=== PATIENT | female | born 1995 | race Caucasian/White ===

== ENCOUNTER 2019-09-06 10:30 | Emergency (ER) | payer SELFPAY ==
--- NOTE | 2019-09-06 11:22 | ER Document Report ---
ED Medical Screen (RME) - General Chief Complaint: Palpitations Stated Complaint: PALPITATIONS Time Seen by Provider: 09/06/19 11:19 Mode of Arrival: Ambulatory Information source: Patient Notes: 24-year-old female presented to ED for complaint of palpitations. She denies any chest pains at this time. She states her heart was very irregular at the time that the incident started but she does not have any right now. She states she had a real bad in October 2016 before she had her thyroid removed. She states is been going on for 2 to 3 weeks this time. She states is mostly at night. But this morning at 5:00 it started but is better at this time. She is alert oriented respirations regular nonlabored speaking in full sentences. She states when she is having the palpitations irregular heartbeat she does get very short of breath. I have greeted and performed a rapid initial assessment of this patient. A comprehensive ED assessment and evaluation of the patient, analysis of test results and completion of medical decision making process will be conducted by an additional ED providers. - Related Data Allergies/Adverse Reactions: No Known Allergies Allergy (Verified 09/06/19 11:19) Past Medical History Past Surgical History: Reports: Hx Thyroid Surgery Physical Exam - Vital signs Vitals: Temp Pulse Resp BP Pulse Ox 98.5 F 80 18 113/73 98 09/06/19 10:58 09/06/19 10:58 09/06/19 10:58 09/06/19 10:58 09/06/19 10:58 Course - Vital Signs Vital signs: Temp Pulse Resp BP Pulse Ox 98.5 F 80 18 113/73 98 09/06/19 10:58 09/06/19 10:58 09/06/19 10:58 09/06/19 10:58 09/06/19 10:58
--- NOTE | 2019-09-06 12:07 | RADIOLOGY REPORT (SQ) ---
EXAM DESCRIPTION: CHEST 2 VIEWS COMPLETED DATE/TIME: 09/06/2019 11:59 am REASON FOR STUDY: Palpitation COMPARISON: None. EXAM PARAMETERS: NUMBER OF VIEWS: two views TECHNIQUE: Digital Frontal and Lateral radiographic views of the chest acquired. RADIATION DOSE: NA LIMITATIONS: none FINDINGS: LUNGS AND PLEURA: No opacities, masses or pneumothorax. No pleural effusion. MEDIASTINUM AND HILAR STRUCTURES: No masses or contour abnormalities. HEART AND VASCULAR STRUCTURES: Heart normal size. No evidence for failure. BONES: No acute findings. HARDWARE: None in the chest. OTHER: No other significant finding. IMPRESSION: NO ACUTE RADIOGRAPHIC FINDING IN THE CHEST. TECHNICAL DOCUMENTATION: JOB ID: [id number] [employer]- All Rights Reserved Reading location - IP/workstation name: [email or web address]
[2019-09-06 12:38] LABS: ABSOLUTE BASOPHILS # (AUTO) 0.1 10^3/uL (0.0-0.2); ABSOLUTE EOSINOPHILS # (AUTO) 0.4 10^3/uL (0.0-0.6); ABSOLUTE LYMPHOCYTES (AUTO) 3.6 10^3/uL (0.5-4.7); ABSOLUTE MONOCYTES (AUTO) 0.7 10^3/uL (0.1-1.4); ABSOLUTE NEUT (AUTO) 6.6 10^3/uL (1.7-8.2); BASOPHILS % (AUTO) 0.8 % (0-2); EOSINOPHILS % (AUTO) 3.3 % (0-6); HEMATOCRIT 39.4 % (36.0-47.0); HEMOGLOBIN 13.7 g/dL (12.0-15.5); LYMPHOCYTES % (AUTO) 31.9 % (13-45); MEAN CORPUSCULAR HEMOGLOBIN 29.9 pg (27.0-33.4); MEAN CORPUSCULAR HGB CONC 34.9 g/dL (32.0-36.0); MEAN CORPUSCULAR VOLUME 86 fl (80-97); MONOCYTES % (AUTO) 5.8 % (3-13); PLATELET COUNT 312 10^3/uL (150-450); RED CELL DISTRIBUTION WIDTH 13.4 % (11.5-14.0); SEGMENTED NEUTROPHILS % (AUTO) 58.2 % (42-78); TOTAL CELLS COUNTED % (AUTO) 100 %; WHITE BLOOD COUNT 11.3 10^3/uL (4.0-10.5)
[2019-09-06 12:45] LABS: APPEARANCE,URINE CLEAR; BILIRUBIN,URINE NEGATIVE (NEGATIVE); COLOR,URINE YELLOW; GLUCOSE, URINE NEGATIVE (NEGATIVE); KETONES,URINE NEGATIVE (NEGATIVE); PROTEIN,URINE NEGATIVE (NEGATIVE); URINE SPECIFIC GRAVITY 1.012; UROBILINOGEN,URINE NEGATIVE mg/dL (<2.0)
[2019-09-06 13:00] LABS: ALBUMIN 4.5 g/dL (3.5-5.0); ALKALINE PHOSPHATASE 68 U/L (38-126); ANION GAP 11 (5-19); ASPARTATE AMINO TRANSFERASE 31 U/L (14-36); BILIRUBIN,TOTAL 0.9 mg/dL (0.2-1.3); BLOOD UREA NITROGEN 11 mg/dL (7-20); CALCIUM 8.9 mg/dL (8.4-10.2); CARBON DIOXIDE 22 mmol/L (22-30); CHLORIDE 106 mmol/L (98-107); GLUCOSE 82 mg/dL (75-110); POTASSIUM 4.4 mmol/L (3.6-5.0); TOTAL PROTEIN 7.7 g/dL (6.3-8.2)
[2019-09-06 13:16] LABS: FREE T3 2.02 pg/mL (2.77-5.27); FREE T4 (FREE THYROXINE) 2.04 ng/dL (0.78-2.19)
[2019-09-06 13:29] LABS: THYROID STIMULATING HORMONE 1.33 uIU/mL (0.47-4.68)
--- NOTE | 2019-09-06 13:46 | ER Document Report ---
ED Cardiac - General Chief Complaint: Palpitations Stated Complaint: PALPITATIONS Time Seen by Provider: 09/06/19 11:19 Mode of Arrival: Ambulatory Information source: Patient - HPI Notes: Patient presents with palpitations. She states she has had these palpitations for several months. She states that she has a history of thyroid cancer and has had her thyroid removed. She feels that she may be getting too much thyroid medicine. She states it mainly feels like her heart is beating irregular. She denies any significant chest pain or shortness of breath. These palpitations occur randomly throughout the day. Nothing makes it better or worse. No known radiation of the symptoms. They have been mild to moderate. She states she does have an appointment in 2 days with a primary care physician. - Related Data Allergies/Adverse Reactions: No Known Allergies Allergy (Verified 09/06/19 11:19) Past Medical History - General Information source: Patient - Social History Smoking Status: Current Every Day Smoker Frequency of alcohol use: None Drug Abuse: None Family History: Other - Fibromyalgia Patient has suicidal ideation: No Patient has homicidal ideation: No Past Surgical History: Reports: Hx Thyroid Surgery Review of Systems - Review of Systems Constitutional: denies: Chills, Fever Cardiovascular: Palpitations. denies: Chest pain Respiratory: denies: Cough, Short of breath -: Yes All other systems reviewed and negative Physical Exam - Vital signs Vitals: Temp Pulse Resp BP Pulse Ox 98.5 F 80 18 113/73 98 09/06/19 10:58 09/06/19 10:58 09/06/19 10:58 09/06/19 10:58 09/06/19 10:58 Interpretation: Normal - General General appearance: Appears well, Alert - HEENT Head: Normocephalic, Atraumatic Eyes: Normal Pupils: PERRL - Respiratory Respiratory status: No respiratory distress Chest status: Nontender Breath sounds: Normal Chest palpation: Normal - Cardiovascular Rhythm: Regular Heart sounds: Normal auscultation Murmur: No - Abdominal Inspection: Normal Distension: No distension Bowel sounds: Normal Tenderness: Nontender Organomegaly: No organomegaly - Back Back: Normal, Nontender - Extremities General upper extremity: Normal inspection, Nontender, Normal color, Normal ROM, Normal temperature General lower extremity: Normal inspection, Nontender, Normal color, Normal ROM, Normal temperature, Normal weight bearing. No: Adelina's sign - Neurological Neuro grossly intact: Yes Cognition: Normal Orientation: AAOx4 Lobo Coma Scale Eye Opening: Spontaneous [place]obo Coma Scale Verbal: Oriented [place] Coma Scale Motor: Obeys Commands [place] Coma Scale Total: 15 Speech: Normal Motor strength normal: LUE, RUE, LLE, RLE Sensory: Normal - Psychological Associated symptoms: Normal affect, Normal mood - Skin Skin Temperature: Warm Skin Moisture: Dry Skin Color: Normal Course - Re-evaluation Re-evalutation: 09/06/19 13:52 Patient presents with concerns about palpitations. She states that she feels her heart is beating irregularly EKG here is unremarkable. Laboratories and exam were also unremarkable. I feel the patient is stable to be discharged and follow-up in 2 days with her primary care physician as scheduled - Vital Signs Vital signs: Temp Pulse Resp BP Pulse Ox 98.5 F 80 18 113/73 98 09/06/19 10:58 09/06/19 10:58 09/06/19 10:58 09/06/19 10:58 09/06/19 10:58 - Laboratory Result Diagrams: 09/06/19 12:12 09/06/19 12:12 Laboratory results interpreted by me: 09/06/19 09/06/19 12:12 12:12 WBC 11.3 H Free T3 pg/mL 2.02 L - Diagnostic Test Radiology reviewed: Image reviewed, Reports reviewed - EKG Interpretation by Ga EKG shows normal: Sinus rhythm Rate: Normal - 72 Rhythm: NSR [place]/QRS: No: Right axis deviation, Left axis deviation Discharge - Discharge Clinical Impression: Palpitations Condition: Stable Disposition: HOME, SELF-CARE Instructions: Palpitations (Irregular or Rapid Heartrate) (OM) Additional Instructions: Please keep your appointment with the [facility] as scheduled Forms: Return to Work Referrals: [facility] [Provider Group] - 09/08/19
[2019-09-06 14:15] VITALS: BP 120/79
--- NOTE | 2019-09-07 14:35 | EKG REPORT ---
SEVERITY:- BORDERLINE ECG - SINUS RHYTHM PROBABLE LEFT ATRIAL ABNORMALITY : Confirmed by: Alban Blackman 07-Sep-2019 14:35:01
== END 2019-09-06 14:09 | disposition home or self-care (01) ==
LOC: ER 10:30
DX: R00.2 Palpitations (principal); F17.200 Nicotine dependence, unspecified, uncomplicated; Z85.850 Personal history of malignant neoplasm of thyroid; E89.0 Postprocedural hypothyroidism
CPT/HCPCS: 36415; 71046; 80053; 81001; 83735; 84439; 84443; 84481; 84703; 85025; 93005; 93010; 99285